=== PATIENT | female | born 1980 | race Caucasian/White ===

== ENCOUNTER 2016-08-26 21:49 | Emergency (ER) | payer MEDICAID, OTHER ==
[~2016-08-26] VITALS: Ht 165.1 cm; Wt 108.9 kg
[~2016-08-26 21:49] MED LIST: APIX5TAB PO; [UNRECOGNIZED DRUG - CODE]
[2016-08-26 21:54] VITALS: BP 137/89
--- NOTE | 2016-08-26 22:00 | NUR ---
PT TAKEN TO BED 8
--- NOTE | 2016-08-26 22:18 | NUR ---
PA STUDENT EVALUATING PATIENT AT BEDSIDE
--- NOTE | 2016-08-26 22:19 | NUR ---
36Y/F PATIENT PRESENTS TO ED WITH C/O HEADACHE WITH RUNNING NOSE X 3 DAYS . PT STATES HAVING HEADACHE SINCE SATURDAY, NO FEVER. DENIES N/V/D; SKIN IS PINK/WARM/DRY; AAOX4 WITH EVEN AND STEADY GAIT; LUNGS CLEAR BL; HR EVEN AND REGULAR; PT DENIES ANY FEVER, CP, SOB, OR COUGH AT THIS TIME; PATIENT STATES PAIN OF 5/10 AT THIS TIME; VSS; PATIENT POSITIONED FOR COMFORT; HOB ELEVATED; BEDRAILS UP X2; BED DOWN. ER MD MADE AWARE OF PT STATUS.
--- NOTE | 2016-08-26 22:28 | NUR ---
Dr. Perry evaluating patient at bedside.
--- NOTE | 2016-08-26 22:40 | NUR ---
Patient discharged with v/s stable. Written and verbal after care instructions given and explained. Patient alert, oriented and verbalized understanding of instructions. Ambulatory with steady gait. All questions addressed prior to discharge. ID band removed. Patient advised to follow up with PMD. Rx of FIRIOCET 50/325/40 MG, CODEINE/GUAIFENESIN 10/100MG/5ML given. Patient educated on indication of medication including possible reaction and side effects. Opportunity to ask questions provided and answered.
[2016-08-26 22:43] VITALS: BP 130/81
== END 2016-08-26 22:40 | disposition home or self-care (01) ==
LOC: MED 21:49
DX: J06.9 Acute upper respiratory infection, unspecified (principal); R51 Headache; Z86.718 Personal history of other venous thrombosis and embolism; Z88.8 Allergy status to other drugs, medicaments and biological substances
CPT/HCPCS: 99283

== ENCOUNTER 2016-12-14 20:46 | Emergency (ER) | payer MEDICAID ==
[~2016-12-14] VITALS: Ht 152.4 cm; Wt 102.5 kg
[2016-12-14 20:50] VITALS: BP 145/85
--- NOTE | 2016-12-14 21:29 | NUR ---
PATIENT TAKEN TO BED 3
--- NOTE | 2016-12-14 21:30 | NUR ---
C/O SORE THROAT WITH COUGH X 4 DAYS. ALSO STATES RT. LEG SWOLLEN. HX. DVT RT. LEG, ON ELIQUIS 20 MGPATIENT PRESENTS TO ED WITH C/O SORE THROAT WITH COUGH X 4 DAYS. ALSO STATES RT. LEG SWOLLEN. HX. DVT RT. LEG, ON ELIQUIS 20 MG . SKIN IS PINK/WARM/DRY; AAOX4; LUNGS CLEAR BL; PATIENT STATES PAIN OF 8/10 AT THIS TIME; VSS; PATIENT POSITIONED FOR COMFORT; HOB ELEVATED; BEDRAILS UP X2; BED DOWN. ER MD MADE AWARE OF PT STATUS.
--- NOTE | 2016-12-14 21:46 | NUR ---
Patient being evaluated by Dr. Tang at bedside.
[2016-12-14 21:58] VITALS: BP 118/75
--- NOTE | 2016-12-14 21:58 | NUR ---
Patient discharged with v/s stable BY DR. DAVENPORT. Written and verbal after care instructions given and explained BY DR. DAVENPORT. Patient alert, oriented and verbalized understanding of instructions BY DR. DAVENPORT. Ambulatory, LIMPING DUE TO RT LEG SWELLING . All questions addressed prior to discharge BY DR. DAVENPORT. ID band removed. Patient advised to follow up with PMD BY DR. DAVENPORT. Rx of AUGMENTIN 875MG TAB, 1 TAB ORALLY 2 TIMES A DAY WITH MEAL given BY DR. DAVENPORT. Patient educated on indication of medication including possible reaction and side effects BY DR. DAVENPORT. Opportunity to ask questions provided and answered BY DR. DAVENPORT.
== END 2016-12-14 21:57 | disposition home or self-care (01) ==
LOC: MED 20:46
DX: J02.9 Acute pharyngitis, unspecified (principal); R03.0 Elevated blood-pressure reading, without diagnosis of hypertension; Z88.6 Allergy status to analgesic agent; Z88.5 Allergy status to narcotic agent
CPT/HCPCS: 93971; 99284; Q0092

== ENCOUNTER 2017-03-17 04:18 | Emergency (ER) | payer MEDICAID ==
[~2017-03-17] VITALS: Ht 165.1 cm; Wt 108.9 kg
[2017-03-17 04:34] VITALS: BP 156/112
--- NOTE | 2017-03-17 04:40 | NUR ---
to lobby amb, v/s stable , a/w for bed, ermd noted, ekg done
--- NOTE | 2017-03-17 05:55 | NUR ---
37/F CAME IN W C/O CHEST PAIN STARTED AT 2200 LAST NIGHT, NONPROVOKED, RADIATING TO MIDBACK. EKG REVIEWED BY DR DAVENPORT. PT STATES "THE CHEST PAIN IS ALMOST GONE NOW, BUT MY BACK IS HURTING A LOT". C/O 7/10 MIDBACK SHARP PAIN, NONTRAUMATIC. ALL LUNGS SOUNDS CBTA, 20RR EVEN AND UNLABORED. BS ACTIVE X4, SOFT, ROUND -TENDERNESS. REPORTS N/V X5 STARTED LAST NIGHT. PMH: RT LEG DVT, ON BLOOD THINNERS UNBALE TO RECALL NAME
[2017-03-17] MEDS ORDERED: ONDANSETRON 4 MG/2 ML VIAL IVP ONE (06:30)
[2017-03-17] MEDS ORDERED: KETOROLAC 30 MG/ML VIAL IVP ONE (06:30)
--- NOTE | 2017-03-17 06:45 | NUR ---
PT [place] IN 50'S. SBP 107, ER MD DAVENPORT MADE AWARE, RECEIVED ORDER TO START BOLUS
[2017-03-17] MEDS ORDERED: NACL 0.9% 1,000 ML IV ONE (06:50)
[2017-03-17 07:10] LABS: BASOPHILS # (AUTO) 0.1 K/uL (0.00-0.22); BASOPHILS % (AUTO) 0.9 % (0.0-2.0); EOSINOPHILS # (AUTO) 0.3 K/uL (0-0.4); EOSINOPHILS % (AUTO) 2.8 % (0.0-4.0); HEMATOCRIT 43.1 % (36-48); HEMOGLOBIN 14.4 g/dL (12.0-16.0); LYMPHOCYTES # (AUTO) 1.7 K/uL (2.5-16.5); LYMPHOCYTES % (AUTO) 19.3 % (20.5-51.1); MEAN CORPUSCULAR HEMOGLOBIN 28 pg (27-31); MEAN CORPUSCULAR HGB CONC 33 g/dL (33-37); MEAN CORPUSCULAR VOLUME 86 fL (80-94); MONOCYTES # (AUTO) 0.6 K/uL (0.8-1.0); MONOCYTES % (AUTO) 6.4 % (1.7-9.3); NEUTROPHILS # (AUTO) 6.3 K/uL (1.8-7.7); NEUTROPHILS % (AUTO) 70.6 % (42.2-75.2); PLATELET COUNT (AUTO) 414 K/uL (140-450); RED BLOOD CELL COUNT(AUTO) 5.05 MIL/uL (4.20-5.40); RED CELL DISTRIBUTION WIDTH 12.5 % (11.6-13.7)
--- NOTE | 2017-03-17 07:10 | NUR ---
Pt report given to CINTIA BUCKNER. Transfer of care at this time.
--- NOTE | 2017-03-17 07:15 | NUR ---
Received report from Mikala BUCKNER. Pt is aox4, rr are even and unlabored. Pt with no complaints. Pt given UA cup and informed pt for urine sample.
[2017-03-17 07:26] LABS: ANION GAP 11.5 (8-16); CARBON DIOXIDE 29.9 mmol/L (21-32); CREATININE 0.8 mg/dL (0.6-1.3); POTASSIUM 3.4 mmol/L (3.5-5.1)
[2017-03-17 07:32] LABS: ALBUMIN 3.8 g/dL (3.4-5.0); TOTAL BILIRUBIN 0.3 mg/dL (0.0-1.0)
--- NOTE | 2017-03-17 08:26 | NUR ---
MD Sanderson by bedside examining pt
[2017-03-17 08:46] VITALS: BP 135/81
--- NOTE | 2017-03-17 08:46 | NUR ---
Patient discharged with v/s stable. Written and verbal after care instructions given and explained. Patient alert, oriented and verbalized understanding of instructions. Ambulatory with to car. All questions addressed prior to discharge. ID band removed. Patient advised to follow up with PMD. Rx of Zofran and Motrin given. Patient educated on indication of medication including possible reaction and side effects. Opportunity to ask questions provided and answered.
== END 2017-03-17 08:46 | disposition home or self-care (01) ==
LOC: MED 04:18
DX: R07.9 Chest pain, unspecified (principal); R11.2 Nausea with vomiting, unspecified; R05 Cough; Z88.6 Allergy status to analgesic agent; Z88.5 Allergy status to narcotic agent
CPT/HCPCS: 36415; 80053; 82150; 83690; 84484; 85025; 85379; 96361; 96374; 96375; 99284; J1885; J2405; J7030

== ENCOUNTER 2017-11-14 03:19 | Emergency (ER) | payer MEDICAID ==
[~2017-11-14] VITALS: Ht 165.1 cm; Wt 109.8 kg
[2017-11-14 03:24] VITALS: BP 115/75
--- NOTE | 2017-11-14 03:32 | NUR ---
PT PRESENTED ER WITH C/O SORE THROAT, BODY ACHES, FEVER, CHILLS, AND COUGH X 1 DAY. DENIES N/V/D; SKIN IS PINK/WARM/DRY; AAOX4 WITH EVEN AND STEADY GAIT; LUNGS CLEAR BL; HR EVEN AND REGULAR. PATIENT STATES PAIN OF 8/10 AT THIS TIME; VSS; PATIENT POSITIONED FOR COMFORT; HOB ELEVATED; BEDRAILS UP X2; BED DOWN. ER MD MADE AWARE OF PT STATUS.
[2017-11-14] MEDS ORDERED: KETOROLAC 60 MG/2 ML VIAL IM ONE (03:35)
[2017-11-14 04:00] VITALS: BP 115/75
--- NOTE | 2017-11-14 04:00 | NUR ---
Patient discharged with v/s stable. Written and verbal after care instructions given and explained. Patient alert, oriented and verbalized understanding of instructions. Ambulatory with steady gait. All questions addressed prior to discharge. ID band removed. Patient advised to follow up with PMD. Rx of PREDNISONE AND MOTRIN were given. Patient educated on indication of medication including possible reaction and side effects. Opportunity to ask questions provided and answered.
== END 2017-11-14 04:00 | disposition home or self-care (01) ==
LOC: MED 03:19
DX: J02.9 Acute pharyngitis, unspecified (principal); R05 Cough; M79.1 Myalgia; Z88.5 Allergy status to narcotic agent; Z88.6 Allergy status to analgesic agent
CPT/HCPCS: 96372; 99283; J1885

== ENCOUNTER 2018-05-20 07:05 | Emergency (ER) | payer MEDICAID, OTHER ==
[~2018-05-20] VITALS: Ht 165.1 cm; Wt 107.0 kg
[2018-05-20 07:05] VITALS: BP 126/69
--- NOTE | 2018-05-20 07:15 | NUR ---
PT TRIAGED, GIVEN URINE CUP AND AMBULATED TO BED 11. REPORT TO BERT BUCKNER.
--- NOTE | 2018-05-20 07:17 | NUR ---
PT TAKEN TO BED 11
--- NOTE | 2018-05-20 07:33 | NUR ---
PATIENT PRESENTS TO ED WITH C/O GENERALIZED ABDOMINAL PAIN , NAUSEA , AND WATERY STOOLS X TODAY DENIES FEVER SKIN IS PINK/WARM/DRY; AAOX4 WITH EVEN AND STEADY GAIT; LUNGS CLEAR BL; HR EVEN AND REGULAR; PT DENIES ANY FEVER, CP, SOB, OR COUGH AT THIS TIME; PATIENT STATES PAIN OF 5/10 AT THIS TIME; VSS; PATIENT POSITIONED FOR COMFORT; HOB ELEVATED; BEDRAILS UP X2; BED DOWN. ER MD MADE AWARE OF PT STATUS.
--- NOTE | 2018-05-20 07:34 | NUR ---
Patient discharged with v/s stable. Written and verbal after care instructions given and explained. Patient alert, oriented and verbalized understanding of instructions. Ambulatory with steady gait. All questions addressed prior to discharge. ID band removed. Patient advised to follow up with PMD. Rx of ZOFRAN/LOMOTIL given. Patient educated on indication of medication including possible reaction and side effects. Opportunity to ask questions provided and answered.
[2018-05-20 07:38] VITALS: BP 126/69
== END 2018-05-20 07:34 | disposition home or self-care (01) ==
LOC: MED 07:05
DX: R11.2 Nausea with vomiting, unspecified (principal); R19.7 Diarrhea, unspecified; Z79.1 Long term (current) use of non-steroidal anti-inflammatories (NSAID); Z88.6 Allergy status to analgesic agent; Z79.01 Long term (current) use of anticoagulants
CPT/HCPCS: 99283

== ENCOUNTER 2019-07-26 22:40 | Inpatient (IN) | payer OTHER, MEDICAID, SELFPAY ==
[~2019-07-26] VITALS: Ht 165.1 cm; Wt 118.4 kg
[2019-07-27 00:01] VITALS: BP 141/90
[2019-07-27 00:05] LABS: BASOPHILS # (AUTO) 0.2 K/uL (0.00-0.22); BASOPHILS % (AUTO) 1.7 % (0.0-2.0); EOSINOPHILS # (AUTO) 0.2 K/uL (0-0.4); EOSINOPHILS % (AUTO) 2.4 % (0.0-4.0); HEMOGLOBIN 15.3 g/dL (12.0-16.0); MEAN CORPUSCULAR HEMOGLOBIN 30 pg (27-31); MEAN CORPUSCULAR HGB CONC 34 g/dL (33-37); MEAN CORPUSCULAR VOLUME 87.9 fL (80-94); MONOCYTES # (AUTO) 0.4 K/uL (0.8-1.0); MONOCYTES % (AUTO) 4.5 % (1.7-9.3); NEUTROPHILS % (AUTO) 71.4 % (42.2-75.2); PLATELET COUNT (AUTO) 269 K/uL (140-450); RED BLOOD CELL COUNT(AUTO) 5.11 MIL/uL (4.20-5.40); RED CELL DISTRIBUTION WIDTH 12.9 % (11.6-13.7); WHITE BLOOD COUNT (AUTO) 9.8 K/uL (4.8-10.8)
[2019-07-27 00:09] LABS: APPEARANCE,URINE CLOUDY (CLEAR); BILIRUBIN,URINE NEGATIVE (NEGATIVE); BLOOD, URINE 2+ (NEGATIVE); COLOR,URINE YELLOW (YELLOW); LEUKOCYTE ESTERASE ,URINE 2+ (NEGATIVE); NITRITE, URINE NEGATIVE (NEGATIVE); UGLUCOSE NEGATIVE (NEGATIVE)
[2019-07-27 00:18] LABS: ALBUMIN 3.7 g/dL (3.4-5.0); ANION GAP 15.2 (8-16); CARBON DIOXIDE 27.6 mmol/L (21-32); CREATININE 1.1 mg/dL (0.6-1.3); LACTATE DEHYDROGENASE 295 U/L (81-234); POTASSIUM 3.8 mmol/L (3.5-5.1); TOTAL BILIRUBIN 0.5 mg/dL (0.0-1.0)
[2019-07-27 00:30] LABS: FIBRINOGEN 317 mg/dL (200-400); PROTHROMBIN TIME 10.4 secs (10.8-13.4)
[2019-07-27] MEDS ORDERED: NACL 0.9% 1,000 ML IV SCH ×2 (00:34→02:18)
[2019-07-27 00:36] LABS: D-DIMER > 5000 ng/ml (0-400)
[2019-07-27 00:37] LABS: RSV NEGATIVE (NEGATIVE)
[2019-07-27 00:46] LABS: RBC,URINE TOO NUMEROUS TO COUN /HPF (0-5); WBC,URINE TOO MANY TO COUNT /HPF (0-5)
[2019-07-27] MEDS ORDERED: LOVENOX 1MG/KG Q12H SUBQ SCH (01:15)
[2019-07-27] MEDS ORDERED: ENOXAPARIN 120 MG/0.8 ML SYR SUBQ ONE (01:25)
[2019-07-27] MEDS ORDERED: cefTRIAXone 1,000 MG VIAL ONE (01:30)
[2019-07-27] MEDS ORDERED: ONDANSETRON 4 MG/2 ML VIAL IM/IVP PRN (02:20)
[2019-07-27] MEDS ORDERED: DOCUSATE SODIUM 100 MG GELCAP PO PRN (02:20)
[2019-07-27] MEDS ORDERED: PREN-13 PO (02:31)
[2019-07-27 03:00] VITALS: BP 97/53
[2019-07-27] MEDS ORDERED: NACL 0.9% 250 ML IV ONE (03:05)
[2019-07-27] MEDS ORDERED: NACL 0.9% 1,500 ML IV ONE (03:05)
[2019-07-27 03:18] LABS: FREE T4 (FREE THYROXINE) 1.13 ng/dL (0.76-1.46); MAGNESIUM 1.8 mg/dL (1.8-2.4); THYROID STIMULATING HORMONE 2.95 uIU/mL (0.34-3.74)
[2019-07-27 04:07] LABS: BARBITURATE, URINE NEGATIVE ng/ml (NEG <=200); BENZODIAZEPINE, URINE NEGATIVE ng/mL (NEG <=200); CANNABINOID, URINE NEGATIVE ng/mL (NEG <=50); COCAINE, URINE NEGATIVE ng/mL (NEG <=300); OPIATE, URINE NEGATIVE ng/mL (NEG <=2000); PHENCYCLIDINE SCREEN,URINE NEGATIVE ng/mL (NEG <=25)
[2019-07-27 07:26] LABS: BASOPHILS # (AUTO) 0.1 K/uL (0.00-0.22); BASOPHILS % (AUTO) 0.5 % (0.0-2.0); EOSINOPHILS # (AUTO) 0.2 K/uL (0-0.4); EOSINOPHILS % (AUTO) 1.8 % (0.0-4.0); HEMATOCRIT 40.5 % (36-48); HEMOGLOBIN 13.7 g/dL (12.0-16.0); LYMPHOCYTES # (AUTO) 2.5 K/uL (2.5-16.5); LYMPHOCYTES % (AUTO) 25.5 % (20.5-51.1); MEAN CORPUSCULAR HEMOGLOBIN 30 pg (27-31); MEAN CORPUSCULAR HGB CONC 34 g/dL (33-37); MONOCYTES # (AUTO) 0.7 K/uL (0.8-1.0); MONOCYTES % (AUTO) 6.7 % (1.7-9.3); NEUTROPHILS # (AUTO) 6.4 K/uL (1.8-7.7); NEUTROPHILS % (AUTO) 65.5 % (42.2-75.2); PLATELET COUNT (AUTO) 262 K/uL (140-450); RED CELL DISTRIBUTION WIDTH 13.2 % (11.6-13.7); WHITE BLOOD COUNT (AUTO) 9.7 K/uL (4.8-10.8)
[2019-07-27 07:54] LABS: CHOL/HDL RATIO 4.4 (1-4.5)
[2019-07-27] MEDS: LACTOBACILLUS RHAMNOSUS GG 1 EACH CAP PO SCH (08:37)
[2019-07-27] MEDS: ENOXAPARIN 120 MG/0.8 ML SYR SUBQ SCH ×2 (08:39→20:34)
[2019-07-27 08:57] VITALS: BP 95/69
[2019-07-27 12:09] VITALS: BP 103/60
[2019-07-27 16:18] VITALS: BP 103/85
[2019-07-27 20:00] VITALS: BP 102/61
[2019-07-27] MEDS ORDERED: MORPHINE SULFATE 2 MG/ML SYR IVP PRN (22:10)
[2019-07-28] VITALS: BP 90/57
[2019-07-28] MEDS ORDERED: CALCIUM CARB 600 MG TAB PO PRN (00:45)
[2019-07-28 04:00] VITALS: BP 105/71
[2019-07-28 08:00] VITALS: BP 107/66
[2019-07-28] MEDS: LACTOBACILLUS RHAMNOSUS GG 1 EACH CAP PO SCH (09:09)
[2019-07-28] MEDS: ENOXAPARIN 120 MG/0.8 ML SYR SUBQ SCH ×2 (09:11→20:11)
[2019-07-28 12:00] VITALS: BP 100/68
[2019-07-28 12:02] LABS: BASOPHILS % (AUTO) 0.5 % (0.0-2.0); EOSINOPHILS # (AUTO) 0.3 K/uL (0-0.4); EOSINOPHILS % (AUTO) 4.3 % (0.0-4.0); HEMATOCRIT 39.9 % (36-48); HEMOGLOBIN 13.5 g/dL (12.0-16.0); LYMPHOCYTES % (AUTO) 26.1 % (20.5-51.1); MEAN CORPUSCULAR HEMOGLOBIN 30 pg (27-31); MEAN CORPUSCULAR HGB CONC 34 g/dL (33-37); MEAN CORPUSCULAR VOLUME 88.2 fL (80-94); MONOCYTES # (AUTO) 0.7 K/uL (0.8-1.0); MONOCYTES % (AUTO) 8.3 % (1.7-9.3); NEUTROPHILS # (AUTO) 4.7 K/uL (1.8-7.7); NEUTROPHILS % (AUTO) 60.8 % (42.2-75.2); PLATELET COUNT (AUTO) 277 K/uL (140-450); RED BLOOD CELL COUNT(AUTO) 4.52 MIL/uL (4.20-5.40); WHITE BLOOD COUNT (AUTO) 7.8 K/uL (4.8-10.8)
[2019-07-28 12:18] LABS: ALBUMIN 2.8 g/dL (3.4-5.0); ANION GAP 14.5 (8-16); CARBON DIOXIDE 25.5 mmol/L (21-32); CREATININE 0.8 mg/dL (0.6-1.3); MAGNESIUM 1.6 mg/dL (1.8-2.4); PHOSPHORUS 3.2 mg/dL (2.5-4.9); TOTAL BILIRUBIN 0.5 mg/dL (0.0-1.0)
[2019-07-28] MEDS ORDERED: MAG SULF 2000 MG/WATER PREMIX 50 ML IV SCH (14:00)
[2019-07-28 16:00] VITALS: BP 103/69
[2019-07-28 20:00] VITALS: BP 107/57
[2019-07-29] VITALS: BP 109/67
[2019-07-29 04:00] VITALS: BP 98/61
[2019-07-29 07:43] LABS: ALBUMIN 2.8 g/dL (3.4-5.0); ANION GAP 11.5 (8-16); CARBON DIOXIDE 26.5 mmol/L (21-32); CREATININE 0.7 mg/dL (0.6-1.3); TOTAL BILIRUBIN 0.5 mg/dL (0.0-1.0)
[2019-07-29 07:44] LABS: MAGNESIUM 1.7 mg/dL (1.8-2.4); PHOSPHORUS 3.3 mg/dL (2.5-4.9)
[2019-07-29 08:00] VITALS: BP 121/89
[2019-07-29] MEDS: LACTOBACILLUS RHAMNOSUS GG 1 EACH CAP PO SCH (09:00)
[2019-07-29] MEDS: ENOXAPARIN 120 MG/0.8 ML SYR SUBQ SCH ×2 (10:36→20:22)
[2019-07-29 10:51] LABS: BASOPHILS # (AUTO) 0.1 K/uL (0.00-0.22); EOSINOPHILS # (AUTO) 0.3 K/uL (0-0.4); EOSINOPHILS % (AUTO) 4.6 % (0.0-4.0); HEMATOCRIT 39.5 % (36-48); HEMOGLOBIN 13.2 g/dL (12.0-16.0); LYMPHOCYTES # (AUTO) 2.4 K/uL (2.5-16.5); MEAN CORPUSCULAR HEMOGLOBIN 30 pg (27-31); MEAN CORPUSCULAR HGB CONC 34 g/dL (33-37); MEAN CORPUSCULAR VOLUME 89.4 fL (80-94); MONOCYTES # (AUTO) 0.6 K/uL (0.8-1.0); MONOCYTES % (AUTO) 7.6 % (1.7-9.3); NEUTROPHILS # (AUTO) 3.9 K/uL (1.8-7.7); NEUTROPHILS % (AUTO) 53.8 % (42.2-75.2); PLATELET COUNT (AUTO) 277 K/uL (140-450); RED BLOOD CELL COUNT(AUTO) 4.42 MIL/uL (4.20-5.40); RED CELL DISTRIBUTION WIDTH 13.3 % (11.6-13.7); WHITE BLOOD COUNT (AUTO) 7.3 K/uL (4.8-10.8)
[2019-07-29 12:08] VITALS: BP 99/75
[2019-07-29] MEDS ORDERED: MAG SULF 2000 MG/WATER PREMIX 50 ML IV SCH (13:00)
[2019-07-29 16:00] VITALS: BP 108/67
[2019-07-29 20:00] VITALS: BP 93/68
[2019-07-30] VITALS: BP 107/69
[2019-07-30 03:45] VITALS: BP 101/69
[2019-07-30 08:00] VITALS: BP 115/71
[2019-07-30] MEDS: LACTOBACILLUS RHAMNOSUS GG 1 EACH CAP PO SCH (09:09)
[2019-07-30] MEDS: ENOXAPARIN 120 MG/0.8 ML SYR SUBQ SCH (09:12)
[2019-07-30 12:00] VITALS: BP 103/75
[2019-07-30] MEDS ORDERED: APIX5TAB PO ×2 (13:58→13:59)
[2019-07-30 16:00] VITALS: BP 115/80
[2019-07-30 20:00] VITALS: BP 98/65
[2019-07-30] MEDS: APIXABAN 2.5 MG TAB PO SCH (20:50)
[2019-07-31 00:30] VITALS: BP 97/67
[2019-07-31 03:45] VITALS: BP 117/74
[2019-07-31 08:00] VITALS: BP 106/64
[2019-07-31] MEDS: LACTOBACILLUS RHAMNOSUS GG 1 EACH CAP PO SCH (09:17)
[2019-07-31] MEDS: APIXABAN 2.5 MG TAB PO SCH (09:18)
[2019-07-31 12:00] VITALS: BP 100/68
[2019-07-31 15:34] VITALS: BP 100/68
== END 2019-07-31 16:15 | disposition home or self-care (01) | DRG 831 ==
LOC: MED 22:40 → EEVIPCON 22:40 → MTU 07-27 02:23
PROVIDERS: ADMIT General Practice; ATTEND General Practice
DX: O98.811 Other maternal infectious and parasitic diseases complicating pregnancy, first trimester (principal); A41.9 Sepsis, unspecified organism; J96.01 Acute respiratory failure with hypoxia; O22.31 Deep phlebothrombosis in pregnancy, first trimester; I26.92 Saddle embolus of pulmonary artery without acute cor pulmonale; Z68.41 Body mass index [BMI] 40.0-44.9, adult; I82.411 Acute embolism and thrombosis of right femoral vein; I82.441 Acute embolism and thrombosis of right tibial vein; O23.41 Unspecified infection of urinary tract in pregnancy, first trimester; O99.411 Diseases of the circulatory system complicating pregnancy, first trimester; O12.11 Gestational proteinuria, first trimester; I42.9 Cardiomyopathy, unspecified; O99.611 Diseases of the digestive system complicating pregnancy, first trimester; O99.89 Other specified diseases and conditions complicating pregnancy, childbirth and the puerperium; K80.20 Calculus of gallbladder without cholecystitis without obstruction; K44.9 Diaphragmatic hernia without obstruction or gangrene; N83.202 Unspecified ovarian cyst, left side; O02.1 Missed abortion; O99.511 Diseases of the respiratory system complicating pregnancy, first trimester; O99.211 Obesity complicating pregnancy, first trimester; E66.01 Morbid (severe) obesity due to excess calories; Z3A.09 9 weeks gestation of pregnancy; Z86.718 Personal history of other venous thrombosis and embolism; Z83.3 Family history of diabetes mellitus; Z03.818 Encounter for observation for suspected exposure to other biological agents ruled out
CPT/HCPCS: 36415; 36600; 71045; 71275; 76801; 76817; 80053; 80305; 81001; 82150; 82550; 82728; 82803; 83036; 83605; 83615; 83690; 83735; 83880; 84100; 84439; 84443; 84484; 84702; 85025; 85379; 85384; 85610; 85651; 85730; 86140; 86886; 86900; 86901; 87040; 87081; 87086; 87420; 87804; 93970; 96365; 96372; 99291; J0696; J1650; J2270; J3475; J7030; J7060; Q0092; Q9967

== ENCOUNTER 2019-08-13 17:54 | Emergency (ER) | payer OTHER, MEDICAID, SELFPAY ==
[~2019-08-13] VITALS: Ht 165.1 cm; Wt 118.4 kg
[~2019-08-13 17:54] MED LIST changes: -[UNRECOGNIZED DRUG - CODE]
[2019-08-13] MEDS ORDERED: FLUORESCEIN OPTH STRIP 1 MG ONE (18:09)
--- NOTE | 2019-08-13 18:09 | NUR ---
Patient ambulated to bed 12. RN evaluating patient at bedside.
[2019-08-13 18:12] VITALS: BP 145/86
--- NOTE | 2019-08-13 18:23 | NUR ---
PT PRESENTS TO THE ER FOR VAGINAL BLEED S/P MIS[place]RIAGE 1700 TODAY WITH 2 MONS OF . PT DENIES ABDOMINAL PAIN/CRAMPS, SOB, DIZZINESS, WEAKNESS, COUGH, CP, N/V AT THIS TIME. A0 [place] 1, PT IS ON ELIQUIS 10MG DAILY DUE TO HX OF PE. SKIN IS PINK/WARM/DRY; AAOX4 WITH EVEN AND STEADY GAIT; HR EVEN AND REGULAR; PATIENT STATES PAIN OF 0/10 AT THIS TIME; VSS; PATIENT POSITIONED FOR COMFORT; HOB ELEVATED; BEDRAILS UP X2; BED DOWN. ER MD MADE AWARE OF PT STATUS. PT IS ON THE MONITOR.
[2019-08-13] MEDS ORDERED: NACL 0.9% 1,000 ML IV ONE ×2 (18:35→20:30)
[2019-08-13 18:53] LABS: BASOPHILS # (AUTO) 0.1 K/uL (0.00-0.22); BASOPHILS % (AUTO) 1.2 % (0.0-2.0); EOSINOPHILS # (AUTO) 0.2 K/uL (0-0.4); EOSINOPHILS % (AUTO) 2.8 % (0.0-4.0); HEMATOCRIT 42.2 % (36-48); LYMPHOCYTES # (AUTO) 2.4 K/uL (2.5-16.5); LYMPHOCYTES % (AUTO) 31.2 % (20.5-51.1); MEAN CORPUSCULAR HEMOGLOBIN 30 pg (27-31); MEAN CORPUSCULAR HGB CONC 33 g/dL (33-37); MEAN CORPUSCULAR VOLUME 88.9 fL (80-94); MONOCYTES # (AUTO) 0.4 K/uL (0.8-1.0); MONOCYTES % (AUTO) 5.2 % (1.7-9.3); NEUTROPHILS # (AUTO) 4.6 K/uL (1.8-7.7); NEUTROPHILS % (AUTO) 59.6 % (42.2-75.2); PLATELET COUNT (AUTO) 424 K/uL (140-450); RED BLOOD CELL COUNT(AUTO) 4.75 MIL/uL (4.20-5.40); RED CELL DISTRIBUTION WIDTH 13.5 % (11.6-13.7); WHITE BLOOD COUNT (AUTO) 7.8 K/uL (4.8-10.8)
[2019-08-13 19:00] LABS: APPEARANCE,URINE CLOUDY (CLEAR); BILIRUBIN,URINE NEGATIVE (NEGATIVE); BLOOD, URINE 3+ (NEGATIVE); COLOR,URINE RED (YELLOW); LEUKOCYTE ESTERASE ,URINE NEGATIVE (NEGATIVE); NITRITE, URINE NEGATIVE (NEGATIVE); UGLUCOSE 1+ (NEGATIVE)
[2019-08-13 19:01] LABS: RBC,URINE TOO NUMEROUS TO COUN /HPF (0-5); WBC,URINE 0-5 /HPF (0-5)
--- NOTE | 2019-08-13 19:10 | NUR ---
RECEIVED REPORT FROM SITA CRUZ. WILL CONT CARE AT THIS TIME.
--- NOTE | 2019-08-13 19:12 | NUR ---
US AT BEDSIDE.
--- NOTE | 2019-08-13 19:13 | NUR ---
Pt report given to SITA Zaidi. Transfer of care at this time.
[2019-08-13 19:14] LABS: PROTHROMBIN TIME 10.6 secs (10.8-13.4)
[2019-08-13 19:17] LABS: ALBUMIN 3.4 g/dL (3.4-5.0); CARBON DIOXIDE 27.6 mmol/L (21-32); CREATININE 0.8 mg/dL (0.6-1.3); POTASSIUM 3.6 mmol/L (3.5-5.1); TOTAL BILIRUBIN 0.4 mg/dL (0.0-1.0)
[2019-08-13] MEDS ORDERED: MISOPROSTOL 100 MCG TAB PO ONE ×2 (20:05→20:30)
--- NOTE | 2019-08-13 20:29 | NUR ---
pt vomitted cytotec. pt is also pale, lightheaded and cool extrem to touch. HR is 53 with bp 96/54. ermd aware.
[2019-08-13] MEDS ORDERED: ONDANSETRON 4 MG/2 ML VIAL IVP ONE (20:30)
--- NOTE | 2019-08-13 20:43 | NUR ---
PT PUT on 2L NC FOR COMFORT. NO RESP DISTRESS NOTED.
--- NOTE | 2019-08-13 20:50 | NUR ---
LAB AT BEDSIDE.
--- NOTE | 2019-08-13 21:25 | NUR ---
BP 107/58 AND HR 60. ERMD MENDOZA AWARE. NAUSEA AND VOMITING IS UNDER CONTROL.
--- NOTE | 2019-08-13 21:30 | NUR ---
NAUSEA AND VOMITING UNDER CONTROL. GAVE CYTOTEC 0.2MG PO AT 2130 PER ERMD ORDER.
[2019-08-13 21:31] LABS: BASOPHILS # (AUTO) 0.1 K/uL (0.00-0.22); EOSINOPHILS # (AUTO) 0.2 K/uL (0-0.4); EOSINOPHILS % (AUTO) 1.8 % (0.0-4.0); HEMATOCRIT 35.1 % (36-48); HEMOGLOBIN 11.5 g/dL (12.0-16.0); LYMPHOCYTES # (AUTO) 2.4 K/uL (2.5-16.5); LYMPHOCYTES % (AUTO) 24.8 % (20.5-51.1); MEAN CORPUSCULAR HEMOGLOBIN 30 pg (27-31); MEAN CORPUSCULAR HGB CONC 33 g/dL (33-37); MEAN CORPUSCULAR VOLUME 89.9 fL (80-94); MONOCYTES # (AUTO) 0.5 K/uL (0.8-1.0); MONOCYTES % (AUTO) 5.3 % (1.7-9.3); NEUTROPHILS # (AUTO) 6.4 K/uL (1.8-7.7); NEUTROPHILS % (AUTO) 67.1 % (42.2-75.2); PLATELET COUNT (AUTO) 331 K/uL (140-450); RED CELL DISTRIBUTION WIDTH 13.7 % (11.6-13.7); WHITE BLOOD COUNT (AUTO) 9.5 K/uL (4.8-10.8)
--- NOTE | 2019-08-13 21:57 | NUR ---
PT HAS STEADY GAIT. VSS. DENIES ANY DIZZINESS OR LIGHTHEADEDNESS. SKIN COLOR IS NORMAL FOR ETHNICITY.
--- NOTE | 2019-08-13 21:58 | NUR ---
PTS PAD HAS MODERATE LOCHIA WITH NO CLOTTING.
[2019-08-13 22:10] VITALS: BP 123/72
--- NOTE | 2019-08-13 22:10 | NUR ---
Patient discharged with v/s stable. Written and verbal after care instructions given and explained. Patient alert, oriented and verbalized understanding of instructions. Ambulatory with steady gait. All questions addressed prior to discharge. ID band removed. Patient advised to follow up with PMD. Rx of CYTOTEC given. Patient educated on indication of medication including possible reaction and side effects. Opportunity to ask questions provided and answered.
== END 2019-08-13 22:10 | disposition home or self-care (01) ==
LOC: EEVIPCON 17:54 → MED 17:54
DX: O03.9 Complete or unspecified spontaneous abortion without complication (principal); Z88.5 Allergy status to narcotic agent; Z88.6 Allergy status to analgesic agent; Z86.718 Personal history of other venous thrombosis and embolism; Z79.899 Other long term (current) drug therapy
CPT/HCPCS: 36415; 76801; 80053; 81001; 84702; 85025; 85610; 85730; 86886; 86900; 86901; 87086; 96374; 99284; J2405; J7030; Q0092

== ENCOUNTER 2021-12-10 23:50 | Emergency (ER) | payer OTHER, MEDICAID ==
[~2021-12-10] VITALS: Ht 165.1 cm; Wt 108.9 kg
[2021-12-11 00:06] VITALS: BP 174/96
[2021-12-11 01:57] LABS: BASOPHILS # (AUTO) 0.1 K/uL (0.00-0.22); BASOPHILS % (AUTO) 0.9 % (0.0-2.0); EOSINOPHILS # (AUTO) 0.4 K/uL (0-0.4); EOSINOPHILS % (AUTO) 4.7 % (0.0-4.0); HEMOGLOBIN 13.7 g/dL (12.0-16.0); LYMPHOCYTES # (AUTO) 1.9 K/uL (2.5-16.5); LYMPHOCYTES % (AUTO) 22.5 % (20.5-51.1); MEAN CORPUSCULAR HEMOGLOBIN 29 pg (27-31); MEAN CORPUSCULAR HGB CONC 33 g/dL (33-37); MONOCYTES # (AUTO) 0.6 K/uL (0.8-1.0); MONOCYTES % (AUTO) 6.8 % (1.7-9.3); NEUTROPHILS # (AUTO) 5.6 K/uL (1.8-7.7); NEUTROPHILS % (AUTO) 65.1 % (42.2-75.2); PLATELET COUNT (AUTO) 378 K/uL (140-450); RED BLOOD CELL COUNT(AUTO) 4.77 MIL/uL (4.20-5.40); RED CELL DISTRIBUTION WIDTH 13.4 % (11.6-13.7); WHITE BLOOD COUNT (AUTO) 8.6 K/uL (4.8-10.8)
[2021-12-11 02:21] LABS: ALBUMIN 3.4 g/dL (3.4-5.0); ANION GAP 15.1 (8-16); CARBON DIOXIDE 24.6 mmol/L (21-32); CHLORIDE 107 mmol/L (98-107); CREATININE 0.7 mg/dL (0.6-1.3); GFR ARICAN-AMERICAN 119 mL/min (>90); GLUCOSE 98 mg/dL (74-106); POTASSIUM 3.7 mmol/L (3.5-5.1); SODIUM SERUM 143 mmol/L (136-145); TOTAL BILIRUBIN 0.3 mg/dL (0.0-1.0); UREA NITROGEN, BLOOD 11 mg/dL (7-18)
--- NOTE | 2021-12-11 02:57 | NUR ---
ERMD ASSESSING IN TRIAGE
--- NOTE | 2021-12-11 05:19 | NUR ---
pt to bed 11
--- NOTE | 2021-12-11 06:49 | NUR ---
called [facility] dispatch and rehana Sommers regarding pt leaving the ER with an IV still on. currently pending status of call back from [facility]
--- NOTE | 2021-12-11 06:51 | NUR ---
Dr. Aly made aware.
== END 2021-12-11 06:51 | disposition left against medical advice (07) ==
LOC: MED 23:50
DX: K80.20 Calculus of gallbladder without cholecystitis without obstruction (principal); R07.9 Chest pain, unspecified; I25.10 Atherosclerotic heart disease of native coronary artery without angina pectoris; Z88.5 Allergy status to narcotic agent; Z88.6 Allergy status to analgesic agent
CPT/HCPCS: 36415; 71275; 80053; 84484; 84702; 85025; 85379; 93005; 99285; Q9967